=== PATIENT | male | born 1960 | race Two or more races ===

== ENCOUNTER 2018-10-18 14:52 | Inpatient (IN) | payer OTHER ==
[~2018-10-18] VITALS: Ht 177.8 cm; Wt 77.1 kg
[2018-10-18 15:27] VITALS: BP 114/75
[2018-10-18] MEDS ORDERED: Vancomycin 1.5gm/D5W 250ml 250 ML IVPB ONE (15:30)
[2018-10-18 16:35] LABS: BASOPHILS % (AUTO) 1.6 % (0.0-2.0); EOSINOPHILS % (AUTO) 3.9 % (0.0-3.0); HEMATOCRIT 45.1 % (42.0-52.0); HEMOGLOBIN 15.4 G/DL (14.2-18.0); LYMPHOCYTES % (AUTO) 34.1 % (20.0-45.0); MEAN CORPUSCULAR VOLUME 86 FL (80-99); MONOCYTES % (AUTO) 17.5 % (1.0-10.0); NEUTROPHILS % (AUTO) 42.9 % (45.0-75.0); PLATELET COUNT 165 K/UL (150-450); RED BLOOD COUNT 5.22 M/UL (4.70-6.10); RED CELL DISTRIBUTION WIDTH 12.5 % (11.6-14.8); WHITE BLOOD COUNT 5.8 K/UL (4.8-10.8)
[2018-10-18 16:45] LABS: ANION GAP 16 mmol/L (5-15); BLOOD UREA NITROGEN 19 mg/dL (7-18); CALCIUM 8.8 MG/DL (8.5-10.1); CARBON DIOXIDE 25 MMOL/L (21-32); CHLORIDE 100 MMOL/L (98-107); CREATININE 0.6 MG/DL (0.55-1.30); POTASSIUM 3.6 MMOL/L (3.5-5.1); SODIUM 141 MMOL/L (136-145)
[2018-10-18 16:49] LABS: ALANINE AMINOTRANSFERASE 33 U/L (12-78); ALBUMIN 3.8 G/DL (3.4-5.0); ALBUMIN/GLOBULIN RATIO 0.8 (1.0-2.7); ALKALINE PHOSPHATASE 135 U/L (46-116); ASPARTATE AMINO TRANSFERASE 39 U/L (15-37); BILIRUBIN,TOTAL 0.3 MG/DL (0.2-1.0)
[2018-10-18 17:14] LABS: APPEARANCE,URINE CLEAR; BILIRUBIN, URINE NEGATIVE (NEGATIVE); GLUCOSE, URINE (UA) NEGATIVE (NEGATIVE); KETONES,URINE 3+ (NEGATIVE); LEUKOCYTE ESTERASE ,URINE 1+ (NEGATIVE); NITRITE,URINE NEGATIVE (NEGATIVE); PH,URINE 5 (4.5-8.0); PROTEIN,URINE 2+ (NEGATIVE); UROBILINOGEN,URINE 1 MG/DL (0.0-1.0)
[2018-10-18 17:15] LABS: COLOR,URINE YELLOW
[2018-10-18 17:26] VITALS: BP 100/53
[2018-10-18] MEDS ORDERED: cefTRIAXone 1 GM in NS 55 ML IVPB ONE (18:15)
[2018-10-18] MEDS ORDERED: Morphine Sulfate 4mg/ml Inj (IV/IM USE ONLY) IVP ONE ×2 (18:45→19:45)
--- NOTE | 2018-10-18 19:32 | Emergency Room Report ---
History of Present Illness General Chief Complaint: General Complaint Source: Patient, EMS Present Illness HPI 58-year-old male presents ED for evaluation. Complaining of left foot pain and swelling. States symptoms started today. Per EMS patient was found outside [facility] assisted-living. patient states he resides there but left because he was having a lot of pain. Throbbing, 9 out of 10, nonradiating. Denies fevers or chills. Denies any recent trauma. No other aggravating relieving factors. Denies any other associated symptoms Allergies: Coded Allergies: No Known Allergies (Unverified , 10/18/18) Patient History Past Medical History: HTN Past Surgical History: none Pertinent Family History: none Social History: Denies: smoking, alcohol use, drug use Immunizations: UTD Reviewed Nursing Documentation: PMH: Agreed; PSxH: Agreed Nursing Documentation-PMH Past Medical History: No History, Except For Hx Hypertension: Yes Review of Systems All Other Systems: negative except mentioned in HPI Physical Exam Vital Signs Date Time Temp Pulse Resp B/P (MAP) Pulse Ox O2 Delivery O2 Flow Rate FiO2 10/18/18 14:54 97.5 111 18 118/68 97 Room Air Sp02 EP Interpretation: reviewed, normal General Appearance: no apparent distress, alert, GCS 15, non-toxic Head: normocephalic Eyes: bilateral eye normal inspection, bilateral eye PERRL ENT: normal ENT inspection Neck: normal inspection Respiratory: normal inspection Cardiovascular #1: normal inspection Gastrointestinal: normal inspection Rectal: deferred Genitourinary: no CVA tenderness Musculoskeletal: swelling - L foot Neurologic: alert, oriented x3, responsive, motor strength/tone normal, sensory intact, speech normal Psychiatric: judgement/insight normal, memory normal, mood/affect normal, no suicidal/homicidal ideation Skin: other - erythema/induration L foot. no fluctuance or discharge Lymphatic: normal inspection Medical Decision Making Diagnostic Impression: Primary Impression: Cellulitis of left foot ER Course Hospital Course 58-year-old male presents to ED with redness, swelling to L foot Differential diagnoses include: Cellulitis, abscess, rash. Clinical course Patient placed on stretcher. After initial history and physical I ordered labs , blood Cx, UA, IVFs labs reviewed - no leukocytosis, Hb/Hct stable, no electrolyte abnormalities. given rocephin and vanco. given IV pain meds. We attempted to contact [facility] as to obtain medical records but they did not return our calls Case discussed with Dr Lawrence and he agreed to accept the patient to his service for further care and support Diagnosis - cellulitis of left foot Patient admitted to floor in serious condition Labs Test 10/18/18 15:29 10/18/18 16:10 10/18/18 16:50 Lactic Acid Level 3.70 mmol/L (0.4-2.0) White Blood Count 5.8 K/UL (4.8-10.8) Red Blood Count 5.22 M/UL (4.70-6.10) Hemoglobin 15.4 G/DL (14.2-18.0) Hematocrit 45.1 % (42.0-52.0) Mean Corpuscular Volume 86 FL (80-99) Mean Corpuscular Hemoglobin 29.6 PG (27.0-31.0) Mean Corpuscular Hemoglobin Concent 34.2 G/DL (32.0-36.0) Red Cell Distribution Width 12.5 % (11.6-14.8) Platelet Count 165 K/UL (150-450) Mean Platelet Volume 5.7 FL (6.5-10.1) Neutrophils (%) (Auto) 42.9 % (45.0-75.0) Lymphocytes (%) (Auto) 34.1 % (20.0-45.0) Monocytes (%) (Auto) 17.5 % (1.0-10.0) Eosinophils (%) (Auto) 3.9 % (0.0-3.0) Basophils (%) (Auto) 1.6 % (0.0-2.0) Sodium Level 141 MMOL/L (136-145) Potassium Level 3.6 MMOL/L (3.5-5.1) Chloride Level 100 MMOL/L (98-107) Carbon Dioxide Level 25 MMOL/L (21-32) Anion Gap 16 mmol/L (5-15) Blood Urea Nitrogen 19 mg/dL (7-18) Creatinine 0.6 MG/DL (0.55-1.30) Estimat Glomerular Filtration Rate > 60 mL/min (>60) Glucose Level 100 MG/DL (74-106) Calcium Level 8.8 MG/DL (8.5-10.1) Total Bilirubin 0.3 MG/DL (0.2-1.0) Aspartate Amino Transf (AST/SGOT) 39 U/L (15-37) Alanine Aminotransferase (ALT/SGPT) 33 U/L (12-78) Alkaline Phosphatase 135 U/L (46-116) Total Protein 8.8 G/DL (6.4-8.2) Albumin 3.8 G/DL (3.4-5.0) Globulin 5.0 g/dL Albumin/Globulin Ratio 0.8 (1.0-2.7) Urine Color Yellow Urine Appearance Clear Urine pH 5 (4.5-8.0) Urine Specific [place] 1.020 (1.005-1.035) Urine Protein 2+ (NEGATIVE) Urine Glucose (UA) Negative (NEGATIVE) Urine Ketones 3+ (NEGATIVE) Urine Blood 2+ (NEGATIVE) Urine Nitrite Negative (NEGATIVE) Urine Bilirubin Negative (NEGATIVE) Urine Urobilinogen 1 MG/DL (0.0-1.0) Urine Leukocyte Esterase 1+ (NEGATIVE) Urine RBC 5-10 /HPF (0 - 0) Urine WBC 0-2 /HPF (0 - 0) Urine Squamous Epithelial Cells Occasional /LPF Urine Bacteria None /HPF (NONE) Last Vital Signs Date Time Temp Pulse Resp B/P (MAP) Pulse Ox O2 Delivery O2 Flow Rate FiO2 10/18/18 17:26 97.5 100 18 100/53 96 Room Air Status: improved Disposition: ADMITTED INPATIENT Condition: Serious Scripts Unable to Obtain Active Prescriptions or Reported Meds Referrals: NOT CHOSEN IPA/,REFERRING (PCP) Phil Pimentel MD Oct 18, 2018 19:32
[2018-10-18] MEDS ORDERED: Ketorolac 30mg Inj IV ONE (21:30)
[2018-10-18] MEDS ORDERED: NKM (22:57)
--- NOTE | 2018-10-18 23:15 | History and Physical Report ---
DATE OF ADMISSION: 10/18/2018 HISTORY OF PRESENT ILLNESS: The patient is a 58-year-old male who came to the hospital for evaluation. He is complaining of left foot pain. He was seen and worked up in the ER. The patient apparently is a resident at a local assisted living facility and left because he felt he was not getting appropriate care. He was seen in the emergency room and found to have evidence of cellulitis, admitted to the hospital for further management and care. PAST MEDICAL HISTORY: Hypertension only. HOME MEDICATIONS: Not known. ALLERGIES: None reported. REVIEW OF SYSTEMS: Denies any headaches, hematemesis, melena, hematochezia. PHYSICAL EXAMINATION: GENERAL: Reveals a 58-year-old male. VITAL SIGNS: Blood pressure 118/68, heart rate 104, respirations 18, afebrile. HEENT: Unremarkable. LUNGS: Clear breath sounds bilaterally. ABDOMEN: Soft. NEUROLOGIC: Nonfocal. EXTREMITIES: The patient has erythema of the left foot with evidence of cellulitis LABORATORY DATA: Lab testing shows normal CBC and BMP. Alkaline phosphatase 135. Urinalysis is negative except for few WBCs. IMPRESSION: 1. Left foot cellulitis. 2. Hypertension. DISCUSSION: 1. 2. Start vancomycin and Rocephin. 3. Consider ID evaluation. 4. Continue medications. 5. IV fluids. 6. We will follow carefully. Bigg Lawrence M.D. DR: Priscila JOB#: [id number] CC:
[2018-10-19] VITALS: BP 139/84
[2018-10-19 04:00] VITALS: BP 134/87
[2018-10-19] MEDS ORDERED: Vancomycin 1250mg/D5W 250ml 250 ML IVPB SCH (04:00)
[2018-10-19] MEDS ORDERED: Vancomycin 1gm in D5W 275ml IVPB SCH (04:00)
[2018-10-19 05:00] LABS: BASOPHILS % (AUTO) 1.5 % (0.0-2.0); HEMATOCRIT 33.7 % (42.0-52.0); LYMPHOCYTES % (AUTO) 24.2 % (20.0-45.0); MEAN CORPUSCULAR VOLUME 84 FL (80-99); MONOCYTES % (AUTO) 10.6 % (1.0-10.0); NEUTROPHILS % (AUTO) 55.7 % (45.0-75.0); PLATELET COUNT 126 K/UL (150-450); RED CELL DISTRIBUTION WIDTH 12.1 % (11.6-14.8); WHITE BLOOD COUNT 4.5 K/UL (4.8-10.8)
[2018-10-19 05:31] LABS: ANION GAP 14 mmol/L (5-15); BLOOD UREA NITROGEN 18 mg/dL (7-18); CALCIUM 8.2 MG/DL (8.5-10.1); CARBON DIOXIDE 23 MMOL/L (21-32); CHLORIDE 103 MMOL/L (98-107); CREATININE 0.6 MG/DL (0.55-1.30); POTASSIUM 3.2 MMOL/L (3.5-5.1); SODIUM 140 MMOL/L (136-145)
[2018-10-19 08:00] VITALS: BP 130/84
[2018-10-19] MEDS ORDERED: CEPHALEXIN500 MG ORAL (10:40)
[2018-10-19] MEDS ORDERED: Norco 5mg/325mg tab ORAL SCH (10:45)
[2018-10-19] MEDS ORDERED: Pneumococcal Vaccine 25mcg/0.5ml IM ONE (11:15)
[2018-10-19] MEDS ORDERED: NS 275ml ONE (12:09)
[2018-10-19] MEDS ORDERED: Tubing IV Secondary IV ONE (12:09)
[2018-10-19] MEDS ORDERED: D5W 275ml ONE (12:09)
[2018-10-19 12:15] VITALS: BP 136/82
--- NOTE | 2018-10-19 14:11 | Pulmonology Progress Note ---
Assessment/Plan Assessment/Plan 1. Left foot cellulitis. significantly improved overnight 2. Hypertension. DISCUSSION: 1. DC home 2. by mouth Keflex Subjective Interval Events: asking/demanding intravenous narcotics Constitutional: Reports: no symptoms HEENT: Repors: no symptoms Respiratory: Reports: no symptoms Cardiovascular: Reports: no symptoms Gastrointestinal/Abdominal: Reports: no symptoms Genitourinary: Reports: no symptoms Neurologic: Reports: no symptoms Allergies: Coded Allergies: No Known Allergies (Unverified , 10/18/18) Objective Last 24 Hour Vital Signs Date Time Temp Pulse Resp B/P (MAP) Pulse Ox O2 Delivery O2 Flow Rate FiO2 10/19/18 12:15 96.1 75 15 136/82 (100) 98 10/19/18 09:23 Room Air 10/19/18 09:00 Room Air 10/19/18 08:00 98.2 91 16 130/84 (99) 99 10/19/18 04:00 98.0 102 24 134/87 (103) 99 10/19/18 00:38 Room Air 10/19/18 00:00 97.8 99 20 139/84 (102) 99 10/19/18 00:00 98.4 99 18 139/84 99 Room Air 10/18/18 19:30 97.5 10/18/18 19:30 97.5 10/18/18 17:26 97.5 100 18 100/53 96 Room Air 10/18/18 15:27 97.5 100 18 114/75 98 Room Air 10/18/18 15:25 100 18 Room Air 10/18/18 14:54 97.5 111 18 118/68 97 Room Air Intake and Output 10/18/18 10/19/18 19:00 07:00 Intake Total 275.000 ml Output Total 400 ml Balance -125.000 ml IV Total 275.000 ml Output Urine Total 400 ml # Voids 1 General Appearance: no acute distress HEENT: normocephalic Respiratory/Chest: chest wall non-tender, lungs clear Cardiovascular: normal peripheral pulses, normal rate Abdomen: normal bowel sounds, soft, non tender Laboratory Tests 10/18/18 15:29: Lactic Acid Level 3.70H 10/18/18 16:10: White Blood Count 5.8, Red Blood Count 5.22, Hemoglobin 15.4, Hematocrit 45.1, Mean Corpuscular Volume 86, Mean Corpuscular Hemoglobin 29.6, Mean Corpuscular Hemoglobin Concent 34.2, Red Cell Distribution Width 12.5, Platelet Count 165, Mean Platelet Volume 5.7L, Neutrophils (%) (Auto) 42.9L, Lymphocytes (%) (Auto) 34.1, Monocytes (%) (Auto) 17.5H, Eosinophils (%) (Auto) 3.9H, Basophils (%) ( Auto) 1.6, Sodium Level 141, Potassium Level 3.6, Chloride Level 100, Carbon Dioxide Level 25, Anion Gap 16H, Blood Urea Nitrogen 19H, Creatinine 0.6, Estimat Glomerular Filtration Rate > 60, Glucose Level 100, Calcium Level 8.8, Total Bilirubin 0.3, Aspartate Amino Transf (AST/SGOT) 39H, Alanine Aminotransferase (ALT/SGPT) 33, Alkaline Phosphatase 135H, Total Protein 8.8H, Albumin 3.8, Globulin 5.0, Albumin/Globulin Ratio 0.8L 10/18/18 16:50: Urine Color Yellow, Urine Appearance Clear, Urine pH 5, Urine Specific [place] 1.020, Urine Protein 2+H, Urine Glucose (UA) Negative, Urine Ketones 3+H, Urine Blood 2+H, Urine Nitrite Negative, Urine Bilirubin Negative, Urine Urobilinogen 1H, Urine Leukocyte Esterase 1+H, Urine RBC 5-10H, Urine WBC 0-2, Urine Squamous Epithelial Cells Occasional, Urine Bacteria None 10/18/18 22:50: Lactic Acid Level 2.60H 10/19/18 03:50: White Blood Count 4.5L, Red Blood Count 4.00L, Hemoglobin 12.0L, Hematocrit 33.7L, Mean Corpuscular Volume 84, Mean Corpuscular Hemoglobin 29.9, Mean Corpuscular Hemoglobin Concent 35.5, Red Cell Distribution Width 12.1, Platelet Count 126L, Mean Platelet Volume 5.8L, Neutrophils (%) (Auto) 55.7, Lymphocytes (%) (Auto) 24.2, Monocytes (%) (Auto) 10.6H, Eosinophils (%) (Auto) 8.0H, Basophils (%) (Auto) 1.5, Sodium Level 140, Potassium Level 3.2L, Chloride Level 103, Carbon Dioxide Level 23, Anion Gap 14, Blood Urea Nitrogen 18, Creatinine 0.6, Estimat Glomerular Filtration Rate > 60, Glucose Level 81, Calcium Level 8.2L Bigg Lawrence MD Oct 19, 2018 14:11
[2018-10-19] MEDS ORDERED: cefTRIAXone 1 GM in D5W 55 ML IVPB SCH (18:00)
--- NOTE | 2018-10-21 11:09 | Discharge Summary ---
Discharge Summary Discharge Summary _ DATE OF ADMISSION: 10/18/2018 DATE OF DISCHARGE: 10/19/2018 REASON FOR ADMISSION: 58 years old male with past medical history of hypertension, presented to emergency room with complaint of left foot pain. Patient was seen and examined in emergency department . Vital signs were stable, no fever. Laboratory workup was unremarkable. No leukocytosis. Stable hemoglobin and hematocrit. Elevated lactic acid 3.7 noted, repeated 2.6. Patient was found to have evidence of cellulitis and subsequently admitted to the hospital for further management. HOSPITAL COURSE: Patient admitted to medical surgical floor and started on IV hydration and broad spectrum antibiotics. Pain management addressed as needed. Blood pressure was closely monitored, remained stable. Patient showed clinical improvement in 24 hours and on was able to be discharged home on oral antibiotics to complete the course. Blood culture results at the time of this dictation available, - negative. Due to rapid and expected improvement in patient condition, patient was discharged in one week FINAL DIAGNOSES: Left foot cellulitis Hypertension DISCHARGE MEDICATIONS: See Medication Reconciliation list. DISCHARGE INSTRUCTIONS: [Patient was discharged to assisted living. Follow up with the primary care provider in one week. Patient was instructed on return to ED precautions if worsening erythems , pain, fever or drainage noted. I have been assigned to dictate discharge summary for this account. I was not involved in the patient's management. Laurel Wu NP Oct 21, 2018 11:09
== END 2018-10-19 12:10 | disposition home or self-care (01) | DRG 383 ==
LOC: EDBD 14:52 → EMR 16:44 → 4E 16:45 → EDBEDREQ 20:25
DX: L03.116 Cellulitis of left lower limb (principal); I10 Essential (primary) hypertension
CPT/HCPCS: 36415; 80048; 80053; 81003; 83605; 85025; 87040; 87081; 90732; 96365; 96366; 96367; 96375; 96376; 99285

== ENCOUNTER 2018-10-28 15:21 | Emergency (ER) | payer OTHER ==
[~2018-10-28] VITALS: Ht 167.6 cm; Wt 72.6 kg
[~2018-10-28 15:21] MED LIST: CEPHALEXIN500 MG ORAL; NKM
[2018-10-28 15:25] VITALS: BP 112/86
[2018-10-28] MEDS ORDERED: Pantoprazole Inj IV ONE (15:45)
--- NOTE | 2018-10-28 16:15 | Emergency Room Report ---
History of Present Illness General Chief Complaint: Altered Mental Status Source: Patient, Medical Record, EMS Present Illness HPI 58-year-old male brought in by ambulance after being found down near a local store. Apparently there is blood near his mouth, and it was thought that maybe it coughed up blood or vomited blood. Patient has no complaints, and is not very cooperative, actually denies drinking alcohol, denies any trauma and reports he just wants to be left alone to sleep. Allergies: Coded Allergies: No Known Allergies (Unverified , 10/18/18) Patient History Limited by: medical condition Past Medical History: see triage record Reviewed Nursing Documentation: PMH: Agreed; PSxH: Agreed Nursing Documentation-PMH Past Medical History: No History, Except For Hx Cardiac Problems: Yes - Alcohol abuse Hx Hypertension: Yes Hx Neurological Problems: No Review of Systems All Other Systems: negative except mentioned in HPI Physical Exam Vital Signs Date Time Temp Pulse Resp B/P (MAP) Pulse Ox O2 Delivery O2 Flow Rate FiO2 10/28/18 15:29 97.0 106 24 118/79 96 Room Air Sp02 EP Interpretation: reviewed, normal General Appearance: no apparent distress, alert, non-toxic, other - disheveled , pants soiled with stool, non melenotic, non bloody Head: normocephalic, atraumatic Eyes: bilateral eye normal inspection, bilateral eye PERRL, bilateral eye EOMI ENT: normal ENT inspection, hearing grossly normal, normal pharynx, no angioedema, normal voice, moist mucus membranes Neck: normal inspection, full range of motion, supple, supple/symm/no masses Respiratory: chest non-tender, lungs clear, normal breath sounds, chest symmetrical, palpation of chest normal Cardiovascular #1: normal peripheral pulses, regular rate, rhythm Cardiovascular #2: 2+ radial (R), 2+ radial (L) Gastrointestinal: normal inspection, non tender, soft, no mass, no guarding, no rebound Rectal: deferred Genitourinary: normal inspection, no CVA tenderness Musculoskeletal: back normal, gait/station normal, normal range of motion, non- tender, no calf tenderness Neurologic: alert, responsive, winch stripper III-XII nml as tested, motor strength/tone normal, sensory intact, speech normal Psychiatric: judgement/insight normal, memory normal, mood/affect normal, no suicidal/homicidal ideation Skin: normal color, no rash, warm/dry, normal turgor Lymphatic: no adenopathy Medical Decision Making Diagnostic Impression: Primary Impression: Alcohol abuse ER Course Patient found intoxicated outside a liquor store, with apparent blood near mouth and possible vomiting of blood vs. cough with blood in saliva. Workup today has been unremarkable, he's been monitored for many hours, his alcohol level is 400, and he is visibly intoxicated, his stool examination was negative for blood or melena, and he has not vomited or had abdominal pain. He' s had a normal head CT, no cough here, normal workup other than his alcohol level being elevated. He'll be discharged once sober enough to walk out. He's not had any suicidal ideations, or hallucinations. Rhythm Strip Diag. Results Rhythm Strip Time: 16:15 EP Interpretation: yes Rate: 106 Rhythm: NSR, no PVC's, no ectopy Chest X-Ray Diagnostic Results Chest X-Ray Diagnostic Results : Chest X-Ray Ordered: Yes # of Views/Limited/Complete: 1 View Indication: Other - AMS EP Interpretation: Yes Interpretation: no consolidation, no effusion, no pneumothorax, no acute cardiopulmonary disease Impression: No acute disease Electronically Signed by: Martina Napoles MD CT/MRI/US Diagnostic Results CT/MRI/US Diagnostic Results : Imaging Test Ordered: ct head Impression nad Last Vital Signs Date Time Temp Pulse Resp B/P (MAP) Pulse Ox O2 Delivery O2 Flow Rate FiO2 10/28/18 15:29 97.0 106 24 118/79 96 Room Air Disposition: HOME, SELF-CARE Condition: Stable MATRINA NAPOLES M.D Oct 28, 2018 16:15
[2018-10-28] MEDS ORDERED: LORazepam Inj 2mg/ml 1ml IV ONE (16:30)
[2018-10-28] MEDS ORDERED: DiphenhydrAMINE 50mg/ml Inj IVP ONE (16:30)
--- NOTE | 2018-10-28 17:25 | Diagnostic Imaging Report ---
Indication: Cough Technique: One view of the chest Comparison: none Findings: There is elevation of the right hemidiaphragm. The heart size is normal. The aorta is calcified. Impression: Elevated right hemidiaphragm. No acute process
--- NOTE | 2018-10-28 17:32 | Diagnostic Imaging Report ---
Indication: Reason For Exam: AMS Technique: spiral acquisitions obtained through the brain. Angled axial and coronal 5 x 5 mm slices were reconstructed. No IV contrast utilized. Radiation dose was minimized using automated exposure control Total dose length product 1425.35 mGycm. CTDIvol(s) 70.38 mGy Comparison: none FINDINGS: There is slight image degradation due to motion artifact. No acute hemorrhage or edema. No mass effect or midline shift. There is age-related enlargement of the ventricles and extra axial CSF spaces. There is periventricular deep white matter ischemic change. Normal melton-white differentiation. Visualized orbits are unremarkable. Visualized sinuses are unremarkable. Intact calvarium. IMPRESSION: Chronic and age-related changes. Negative for acute intracranial bleed or mass effect The CT scanner at [facility] is accredited by the [employer] and the scans are performed using protocols designed to limit radiation exposure to as low as reasonably achievable to attain images of sufficient resolution adequate for diagnostic evaluation old ct brain
[2018-10-28] MEDS ORDERED: Pantoprazole Inj ONE (17:57)
[2018-10-28 18:07] LABS: BASOPHILS % (AUTO) 1.1 % (0.0-2.0); EOSINOPHILS % (AUTO) 0.5 % (0.0-3.0); HEMATOCRIT 40.6 % (42.0-52.0); HEMOGLOBIN 13.7 G/DL (14.2-18.0); LYMPHOCYTES % (AUTO) 17.7 % (20.0-45.0); MEAN CORPUSCULAR VOLUME 85 FL (80-99); MONOCYTES % (AUTO) 13.6 % (1.0-10.0); NEUTROPHILS % (AUTO) 67.2 % (45.0-75.0); PLATELET COUNT 193 K/UL (150-450); RED BLOOD COUNT 4.76 M/UL (4.70-6.10); RED CELL DISTRIBUTION WIDTH 13.6 % (11.6-14.8); WHITE BLOOD COUNT 9.5 K/UL (4.8-10.8)
[2018-10-28 18:22] LABS: AMMONIA 21 umol/L (11-32)
[2018-10-28 18:24] LABS: ANION GAP 16 mmol/L (5-15); BLOOD UREA NITROGEN 10 mg/dL (7-18); CALCIUM 8.9 MG/DL (8.5-10.1); CARBON DIOXIDE 26 MMOL/L (21-32); CHLORIDE 99 MMOL/L (98-107); CREATININE 0.5 MG/DL (0.55-1.30); POTASSIUM 3.1 MMOL/L (3.5-5.1); SODIUM 141 MMOL/L (136-145)
[2018-10-28 18:27] LABS: ALANINE AMINOTRANSFERASE 24 U/L (12-78); ALBUMIN 3.4 G/DL (3.4-5.0); ALBUMIN/GLOBULIN RATIO 0.8 (1.0-2.7); ALKALINE PHOSPHATASE 103 U/L (46-116); ASPARTATE AMINO TRANSFERASE 35 U/L (15-37); BILIRUBIN,TOTAL 0.7 MG/DL (0.2-1.0)
[2018-10-28 19:35] VITALS: BP 110/83
[2018-10-28 22:30] VITALS: BP 106/70
[2018-10-29 02:00] VITALS: BP 122/58
[2018-10-29 04:00] VITALS: BP 119/64
[2018-10-29 05:15] VITALS: BP 125/59
[2018-10-29 05:30] VITALS: BP 119/64
== END 2018-10-29 05:30 | disposition home or self-care (01) ==
LOC: EDBD 15:21 → EMR 17:23
DX: F10.10 Alcohol abuse, uncomplicated (principal); R41.82 Altered mental status, unspecified; I10 Essential (primary) hypertension; R05 Cough
CPT/HCPCS: 36415; 70450; 71045; 80053; 80329; 82140; 83690; 84484; 85025; 85610; 85730; 86850; 86900; 86901; 96361; 96374; 96375; 99284; C9113; J2405

== ENCOUNTER 2018-11-02 08:13 | Emergency (ER) | payer OTHER ==
[~2018-11-02] VITALS: Ht 172.7 cm; Wt 72.6 kg
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
[2018-11-02 08:34] VITALS: BP 151/83
[2018-11-02 10:34] VITALS: BP 115/85
[2018-11-02] MEDS ORDERED: NORCO 5-325 TA1 EACH ORAL (11:29)
[2018-11-02] MEDS ORDERED: Norco 5mg/325mg tab ORAL ONE (11:30)
[2018-11-02 14:09] VITALS: BP 125/85
== END 2018-11-02 13:00 | disposition home or self-care (01) ==
LOC: EDBD 08:13 → EMR 08:32
DX: M79.661 Pain in right lower leg (principal); I10 Essential (primary) hypertension; F10.10 Alcohol abuse, uncomplicated
CPT/HCPCS: 99282